=== PATIENT | male | born 1990 | race Caucasian/White ===

== ENCOUNTER 2016-09-18 02:31 | Emergency (ER) | payer SELFPAY ==
[~2016-09-18] VITALS: Ht 180.3 cm; Wt 111.8 kg
[2016-09-18 02:40] VITALS: Ht 180.3 cm; Wt 111.8 kg
--- NOTE | 2016-09-18 04:21 | ERD ---
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 Patient started to have palpitations afterwards. Patient also has history of anxiety, does not take any medications for anxiety. Patient denies any chest pain. Patient denies any dizziness. Patient states that he felt shaky, it improved after an hour. Denies any other symptoms. ROS All systems reviewed and are negative except as per history of present illness. Medications Home Meds Reported Medications [none] Unknown Strength No Conflict Check 09/18/16 Allergies Allergies: Coded Allergies: No Known Allergy (Unverified , 09/18/16) PMhx/Soc Medical and Surgical Hx: pt denies Medical Hx History of Surgery: Yes (gallbladder) Hx Alcohol Use: No Hx Substance Use: Yes (weed) Hx Tobacco Use: No Smoking Status: Never smoker FmHx Family History: No coronary disease, No diabetes, No other Physical Exam Vitals Vital Signs Date Time Temp Pulse Resp B/P Pulse Ox O2 Delivery O2 Flow Rate FiO2 09/18/16 02:40 97.9 110 28 159/103 98 Physical Exam GENERAL: The patient is well developed and appropriate for usual state of health, in no apparent distress. CHEST: Clear to auscultation bilaterally. There are no rales, wheezes or rhonchi. HEART: Regular rate and rhythm. No murmurs, clicks, rubs or gallops. No S3 or S4. ABDOMEN: Soft, nontender and nondistended. Good bowel sounds. No rebound or guarding. No gross peritonitis. No gross organomegaly or masses. No Campos sign or McBurney point tenderness. BACK: No midline or flank tenderness. EXTREMITIES: Equal pulses bilaterally. There is no peripheral clubbing, cyanosis or edema. No focal swelling or erythema. Full range of motion. Grossly neurovascularly intact. NEURO: Alert and oriented. Cranial nerves 2-12 intact. Motor strength in all 4 extremities with 5/5 strength. Sensation grossly intact. Normal speech and gait. SKIN: There is no apparent rash or petechia. The skin is warm and dry. HEMATOLOGIC AND LYMPHATIC: There is no evidence of excessive bruising or lymphedema. No gross cervical, axillary, or inguinal lymphadenopathy. Results 24 hrs Current Medications Medications (Trade) Dose Ordered Sig/Ric Route PRN Reason Start Time Stop Time Status Last Admin Dose Admin Alprazolam (Xanax) 1 mg ONCE ONCE PO 09/18/16 04:30 09/18/16 04:31 DC Xanax was given here in emergency department to help with his anxiety, verbalized feeling much better, heart rate improved afterwards. EKG was done, read by me and is normal sinus rhythm at a rate of 82, normal axis , there is no ST changes or changes in the EKG that indicates any cardiac emergencies at this time. Patient's EKG was also reviewed by Dr. Nguyen. Impression: no acute findings on EKG Procedures/MDM Medical Decision Making: Patient's palpitations most likely is from anxiety, he has history of it, it can be also side effect for marijuana use. There is low suspicion for cardiopulmonary emergencies at this time. Patient has low risk factors. EKG is normal, there is no changes in the EKG that indicates cardiac emergencies. Radiology exam is not indicated at this time. There is low suspicion for aortic aneurysm, myocardial infarction, pneumothorax, pleural effusion, pulmonary embolism, or any other cardiopulmonary emergencies at this time. Patient was advised to avoid using marijuana, rest, follow-up with primary care doctor in 2-3 days for reevaluation of symptoms. Patient was advised to return to emergency department for worsening symptoms. Departure Diagnosis: Primary Impression: Palpitations Additional Impression: Marijuana use Condition: Stable Patient Instructions: Marijuana Abuse, Palpitations Additional Instructions: Patient was advised to avoid using marijuana, rest, follow-up with primary care doctor in 2-3 days for reevaluation of symptoms. Patient was advised to return to emergency department for worsening symptoms. JOAQUIN WHITTEN NP Sep 18, 2016 04:21
[2016-09-18] MEDS ORDERED: ALPRAZOLAM 0.25 MG TAB PO ONE (04:30)
[2016-09-18 05:05] VITALS: BP 134/69; PULSE 110; RESP 22; TEMP 98
== END 2016-09-18 05:25 | disposition home or self-care (01) ==
LOC: FTE 02:31
DX: R00.2 Palpitations (principal); F12.90 Cannabis use, unspecified, uncomplicated
CPT/HCPCS: 93005

== ENCOUNTER 2016-09-28 05:42 | Emergency (ER) | payer SELFPAY ==
[~2016-09-28] VITALS: Ht 182.9 cm; Wt 126.0 kg
[2016-09-28 06:18] VITALS: Ht 182.9 cm; Wt 126.0 kg
--- NOTE | 2016-09-28 07:19 | ERA ---
ER Documentation Chief Complaint Date/Time DATE: 09/28/16 TIME: 07:16 Chief Complaint PALPITATIONS, BLE "PULSATING SENSATION, ZONING OUT" AFTER SMOKING WEED HPI Patient is a 26-year-old male who presents 4 hours after experiencing palpitations(at 3 AM). At the time of onset of symptoms patient was smoking marijuana a few hours after he got off of work 11 PM the previous night. Denies change in diet or activity level. Does state that he has been going through quite a bit of a low at work. Admits to smoking 1 pack per day. Patient currently does not have palpitations. Pt denies previous WV/VTE, crushing-/squeezing-like CP, upper back pain, aching arm pain/numbness, fatigue, dyspnea, palpitations, hemoptysis, irregular heart beat, dizziness, syncope, leg pain/swelling or epigastric pain. Pt denies weight loss, fevers, nausea, vomiting, diarrhea, constipation, hyperhidrosis, rigors, fatigue, dyspnea, malaise or depression. ROS All systems reviewed and are negative except as per history of present illness. Medications Home Meds Reported Medications [none] Unknown Strength No Conflict Check 09/18/16 Allergies Allergies: Coded Allergies: No Known Allergy (Unverified , 09/18/16) PMhx/Soc History of Surgery: Yes (gallbladder) Hx Alcohol Use: No Hx Substance Use: Yes (weed) Hx Tobacco Use: Yes Smoking Status: Current some day smoker Physical Exam Vitals Vital Signs Date Time Temp Pulse Resp B/P Pulse Ox O2 Delivery O2 Flow Rate FiO2 09/28/16 06:18 99.2 78 18 146/91 97 Physical Exam Const: Obese 26-year-old male Head: Atraumatic Eyes: Normal Conjunctiva ENT: Normal External Ears, Nose and Mouth. Neck: Full range of motion..~ No meningismus. Resp: Clear to auscultation bilaterally Cardio: Regular rate and rhythm, no murmurs Abd: Soft, non tender, non distended. Normal bowel sounds Skin: No petechiae or rashes Back: No midline or flank tenderness Ext: No cyanosis, or edema Neur: Awake and alert Psych: Normal Mood and Affect Procedures/MDM Patient presents roughly 4 hours after smoking marijuana. He is worried because he is having palpitations. Palpitations are not currently happening per being under a lot of stress in his life. He denies chest pain, shortness of breath, leg swelling, dizziness, sweating, fever, nausea vomiting diarrhea he smokes cigarettes and drinks 1-2 cups of caffeine a day. Palpitations are most likely secondary due to patient's anxiety. Patient has been counseled to seek a primary care physician to be referred to a psychologist or psychiatrist for more formal work. Departure Diagnosis: Primary Impression: Palpitations Additional Impressions: Drug abuse Marijuana use Condition: Stable Patient Instructions: Marijuana Abuse, Palpitations Additional Instructions: Return to the emergency emergency department if symptoms worsen. Seek a primary care provider. NIKITA SMART PA-C Sep 28, 2016 07:19
== END 2016-09-28 07:19 | disposition home or self-care (01) ==
LOC: FTE 05:42
DX: R00.2 Palpitations (principal); F12.10 Cannabis abuse, uncomplicated; F17.210 Nicotine dependence, cigarettes, uncomplicated
CPT/HCPCS: 99282